=== PATIENT | male | born 1940 | race Caucasian/White ===

== ENCOUNTER 2016-12-29 15:42 | Emergency (ER) | payer MEDICARE, BC ==
--- NOTE | ~2016-12-29 | EKG ---
PATIENT: HERMELINDO VILLEGAS UNIT #: [id number] Ventricular Rate: 76 BPM Atrial Rate: 76 BPM P-R Interval: 164 ms QRS Duration: 130 ms Q-T Interval: 392 ms QTC Calculation(Bezet): 441 ms P [place]: -2 degrees Calculated R [place]: -66 degrees Calculated T [place]: 20 degrees Diagnosis Line: Normal sinus rhythm Diagnosis Line: Right bundle branch block with repolarization Diagnosis Line: abnormality Diagnosis Line: Left anterior fascicular block Diagnosis Line: Bifascicular block Diagnosis Line: Left ventricular hypertrophy with QRS widening Diagnosis Line: Abnormal ECG Diagnosis Line: No previous ECGs available Diagnosis Line: Confirmed by CRISTIN HARRIS MD ([id number]) on 12/31/2016 Diagnosis Line: 12:02:05 PM INTERPRETING MD: STEVEN VIGIL
--- NOTE | ~2016-12-29 | CR58 ---
[facility] A Service of [facility] RADIOLOGY TEXT RESULTS PATIENT: HERMELINDO VILLEGAS LOCATION: SED : 41 UNIT #: [id number] AGE: [address]: Felix Johnson MD SEX: M ORDER DR: [id number] [address] [address] [id number] E MR#: [id number] Acc #: [id number] NAME: HERMELINDO VILLEGAS : 1940 SEX: M STUDY DATE/TIME: 12/29/2016 15:40 UNIT: SED ROOM: STUDY DESCRIPTION: CR Cervical Spine 2 or 3 Views Attending Physician: Felix Johnson M.D. Ordering Physician: Felix Johnson M.D. Primary Care Physician: No Primary Care Physician MEDICAL IMAGING REPORT This report is preliminary unless electronic signature is present. EXAM Cervical spine series. DATE OF EXAM 12/29/2016 HISTORY Pain chest, shoulders, into neck. 4 days duration. No known injury. Chronic shoulder pain. REPORT AP lateral and open mouth odontoid views of the cervical spine are presented. COMPARISON 05/09/2010. FINDINGS 3-4 mm anterolisthesis C4 on C5 and approximately 2 mm anterolisthesis C5 on C6. Similar appearance on the study from 2009. The C4 on C5 anterolisthesis may be slightly greater than on prior study when it was about 3 mm. Vertebral body heights are normal. Severe narrowing of intervertebral disc spaces C2-C3, C3-C4, C4-C5 with moderate disc space narrowing elsewhere. Disc space narrowing has significantly progressed at C2-C3 and C4-C5 in the interval from prior study. Multilevel moderate to marked facet degenerative changes most pronounced C2-C3, C3-C4, C4-C5. Multilevel large anterior osteophytes. The C1-C2 relationship is poorly visualized secondary to bony overlap on the frontal images. It appears grossly normal. The odontoid process appears intact. The prevertebral soft tissues are remarkable. The visualized bony thorax is notable for prior median sternotomy. Degenerative changes in visualized thoracic spine. Multifocal dental fillings. Prominent soft tissue calcifications in the paraspinal regions on frontal views suggest prominent carotid STS. [facility] A Service of [facility] RADIOLOGY TEXT RESULTS PATIENT: HERMELINDO VILLEGAS LOCATION: SED : 41 UNIT #: [id number] AGE: [address]: Felix Johnson MD SEX: M ORDER DR: arterial calcifications. Correlate clinically and consider assessment with elective carotid ultrasound. The lung apices show no acute disease. Calcified granuloma in the left lung apex. If it would assist in patient management, spinal canal and neural foraminal contents could best be further evaluated with elective MRI if patient is candidate or with CT. Dictated by... Jl Beck M.D. THIS IS AN ELECTRONICALLY VERIFIED REPORT Jl Beck M.D. at 12/30/2016 10:49 PM Matt TD: 12/29/2016 21:24 JOB #: [id number] MEDICAL IMAGING REPORT Page 1 of 1
--- NOTE | ~2016-12-29 | CR229 ---
[facility] A Service of [facility] RADIOLOGY TEXT RESULTS PATIENT: HERMELINDO VILLEGAS LOCATION: SED : 41 UNIT #: [id number] AGE: [address]: Felix Johnson MD SEX: M ORDER DR: [id number] [place] [id number] E MR#: [id number] Acc #: [id number] NAME: HERMELINDO VILLEGAS : 1940 SEX: M STUDY DATE/TIME: 12/29/2016 15:40 UNIT: SED ROOM: STUDY DESCRIPTION: CR Shoulder Min 2 View Lt Attending Physician: Felix Johnson M.D. Ordering Physician: Felix Johnson M.D. Primary Care Physician: No Primary Care Physician MEDICAL IMAGING REPORT This report is preliminary unless electronic signature is present. EXAM Left shoulder, 3 views. COMPARISON August 03, 2011. INDICATIONS 76-year-old male with left shoulder pain after falling 5 days ago. FINDINGS Arterial calcifications are seen in the lower neck bilaterally. There is bulky degenerative facet disease at the lower cervical spine bilaterally. There is mild osteophyte formation at the left acromioclavicular joint where a chronic ossicle is also noted. Surgical clips are seen in the left upper arm. Changes of CABG are noted. Bones are anatomically aligned. No evidence of acute fracture. IMPRESSION 1. Advanced degenerative facet disease of the lower cervical spine bilaterally. 2. No acute fracture or dislocation of the left shoulder. Mild AC joint osteoarthritis. 3. Calcifications in the lower neck bilaterally, likely within the carotid arteries. Clinical correlation recommended. Dictated by... Sander Fish M.D. THIS IS AN ELECTRONICALLY VERIFIED REPORT Sander Fish M.D. at 01/01/2017 2:46 PM DORON/marian [facility] A Service of [facility] RADIOLOGY TEXT RESULTS PATIENT: HERMELINDO VILLEGAS LOCATION: SED : 41 UNIT #: [id number] AGE: [address]: Felix Johnson MD SEX: M ORDER DR: TD: 12/29/2016 20:24 JOB #: [id number] MEDICAL IMAGING REPORT Page 1 of 1
--- NOTE | ~2016-12-29 | CR230 ---
[facility] A Service of [facility] RADIOLOGY TEXT RESULTS PATIENT: HERMELINDO VILLEGAS LOCATION: SED : 41 UNIT #: [id number] AGE: [address]: Felix Johnson MD SEX: M ORDER DR: [id number] [place] [id number] E MR#: [id number] Acc #: [id number] NAME: HERMELINDO VILLEGAS : 1940 SEX: M STUDY DATE/TIME: 12/29/2016 15:40 UNIT: SED ROOM: STUDY DESCRIPTION: CR Shoulder Min 2 View Rt Attending Physician: Felix Johnson M.D. Ordering Physician: Felix Johnson M.D. Primary Care Physician: No Primary Care Physician MEDICAL IMAGING REPORT This report is preliminary unless electronic signature is present. EXAM Right shoulder, 3 views. COMPARISON 3 views of the left shoulder on the same date, and right shoulder radiographs dated August 05, 2005. INDICATIONS 76-year-old male with right shoulder pain after falling 5 days ago. FINDINGS Bulky degenerative facet disease is seen in the lower right cervical spine. There is also some uncinate hypertrophy. Surgical anchors are noted in the right humeral head, likely reflecting prior rotator cuff repair. There is mild osteophyte formation of the acromioclavicular joint. Diffuse arterial calcification in the upper arm. No evidence of dislocation. No acute fracture. Prior median sternotomy. Markers of CABG. IMPRESSION 1. No acute fracture or dislocation of the right shoulder. Surgical anchors in the right humeral head likely reflecting prior rotator cuff repair. 2. Mild AC joint osteoarthritis. 3. Diffuse arterial calcification in the upper right arm. Right side degenerative facet disease of the cervical spine. Dictated by... Sander Fish M.D. THIS IS AN ELECTRONICALLY VERIFIED REPORT [facility] A Service of [facility] RADIOLOGY TEXT RESULTS PATIENT: HERMELINDO VLILEGAS LOCATION: SED : 41 UNIT #: [id number] AGE: [address]: Felix Johnson MD SEX: M ORDER DR: Sandre Fish M.D. at 01/01/2017 3:02 PM DORON/marian TD: 12/29/2016 19:30 JOB #: [id number] MEDICAL IMAGING REPORT Page 1 of 1
--- NOTE | ~2016-12-29 | CR72 ---
[facility] A Service [facility] RADIOLOGY TEXT RESULTS PATIENT: HERMELINDO VILLEGAS LOCATION: SED : 41 UNIT #: [id number] AGE: [address]: Felix Johnson MD SEX: M ORDER DR: [id number] [place] [id number] E MR#: [id number] Acc #: [id number] NAME: HERMELINDO VILLEGAS : 1940 SEX: M STUDY DATE/TIME: 12/29/2016 15:40 UNIT: SED ROOM: STUDY DESCRIPTION: CR Chest Single View Portable Attending Physician: Felix Johnson M.D. Ordering Physician: Felix Johnson M.D. Primary Care Physician: No Primary Care Physician MEDICAL IMAGING REPORT This report is preliminary unless electronic signature is present. EXAM Portable AP view of the chest. COMPARISON December 23, 2016, and July 22, 2009. INDICATION 76-year-old male with chest pain after falling 5 days ago. FINDINGS Changes of CABG are again noted. Sternotomy wires appear intact. No evidence of pneumothorax, pleural effusion or acute airspace disease. No evidence of pulmonary contusion. Surgical anchor appears stable in the right humeral head as compared to December 23, 2016. Cardiomediastinal silhouette is likely within normal limits for portable technique. IMPRESSION No acute radiographic abnormality of the chest. Changes of CABG and prior right rotator cuff repair. Dictated by... Sander Fish M.D. THIS IS AN ELECTRONICALLY VERIFIED REPORT Sander Fish M.D. at 01/01/2017 3:02 PM DORON/marian TD: 12/29/2016 19:33 JOB #: [id number] MEDICAL IMAGING REPORT [facility] A Service [facility] RADIOLOGY TEXT RESULTS PATIENT: HERMELINDO VILLEGAS LOCATION: SED : 41 UNIT #: [id number] AGE: [address]: Felix Johnson MD SEX: M ORDER DR: Page 1 of 1
[2016-12-29 15:36] LABS: BASOPHIL% 0.3 % (0-2.5); EOSINOPHIL% 0.7 % (0.0-7.0); HEMATOCRIT 37.5 % (38.0-50.0); LYMPHOCYTE# 0.8 X10e3 (1.0-3.5); LYMPHOCYTE% 13.2 % (17.0-45.0); MEAN CELL VOLUME 88.8 FL (83-96); MEAN CORPUSCULAR HEMOGLOBIN 30.8 PG (28-34); MEAN CORPUSCULAR HGB CONC 34.7 g/dL (30-36); MEAN PLATELET VOLUME 8.1 FL (6.5-11.5); MONOCYTE# 0.5 X10e3 (0-1.0); MONOCYTE% 8.4 % (3.0-12.0); NEUTROPHIL# 4.6 X10e3 (1.5-7.1); NEUTROPHIL% 77.4 % (40-75); PLATELET COUNT 103 X10e3 (140-420); RED BLOOD COUNT 4.22 X10e (3.90-5.60); WHITE BLOOD COUNT 5.9 X10e3 (4.0-10.5)
[2016-12-29 15:37] LABS: DIFF IND NO
[~2016-12-29 15:42] MED LIST: AMBIEN10 MG PO; ASPIRIN EC81 M1 PO; LISINOPRIL10 MG PO; LOPRESSOR PO; METFORMIN HCL500 M2 PO; PANTOPRAZOLE SO40 MG PO; PRAVACHOL PO; ULTRAM PO
[2016-12-29 15:53] LABS: POC - CKMB 3.1 ng/mL (0.0-7.9); POC - TROPONIN <0.05 ng/mL (<=0.05)
[2016-12-29 16:00] LABS: BILIRUBIN, DIRECT 0.1 mg/dL (0.0-0.2); BILIRUBIN,INDIRECT 0.4 mg/dL (0.0-0.9); BILIRUBIN,TOTAL 0.5 mg/dL (0.2-2.0); BUN/CREATININE RATIO 13.63; CALCIUM SERUM 8.9 mg/dL (8.4-10.2); CREATININE SERUM 1.1 mg/dL (0.6-1.4); GLOM FILT RATE Estimated 65.3 mL/min (>60); POTASSIUM 3.9 mmol/L (3.5-5.1); PROTEIN TOTAL SERUM 7.4 g/dL (6.0-8.3)
[2016-12-29 16:16] LABS: INR 1.1; PROTHROMBIN TIME (PATIENT) 12.4 SECONDS (9.5-12.4)
[2016-12-29 16:23] LABS: PARTIAL THROMBOPLASTIN TIME 27.5 SECONDS (25.6-38.1)
== END 2016-12-29 17:36 | disposition home or self-care (01) ==
LOC: SED 15:42
PROVIDERS: Emergency Medicine
DX: M54.12 Radiculopathy, cervical region (principal); Z95.1 Presence of aortocoronary bypass graft
CPT/HCPCS: 36415; 71010; 72040; 73030; 80048; 80076; 82553; 84484; 85025; 85610; 85730; 93005; 96374; 99284; J2930

== ENCOUNTER 2017-02-21 23:57 | Inpatient (IN) | payer MEDICARE, BC ==
--- NOTE | ~2017-02-21 | CO ---
Unit #: [id number] #: [id number] Patient: HERMELINDO EID [id number] [facility] [address] [place], [place] [address] [id number] I MR#: [id number] NAME: HERMELINDO EID ROOM: 560 Age: 76 Sex: M Admission Date: 02/22/2017 : 1940 Attending Physician: Alvin Tomlin M.D. Consultation Date: 02/25/2017 CONSULTATION REPORT REASON FOR CONSULTATION Followup. DISCUSSION Mr. Hermelindo Eid is a 76-year-old white male, seen in room 560, bed 1 on 02/25/[address] [facility]. The patient is making progress. Decrease in anxiety and depression, but still confusion, problem with memory. The patient has a history of chronic alcohol abuse. The patient was able to maintain safe behavior. No aggression. Reports medication is helping him. The patient making progress and will be going to a rehab. The patient currently denied any suicidal or homicidal ideation. Denied any psychotic symptom. The patient's vital signs; temperature 97.7, pulse 78, blood pressure 142/82, and oxygen saturation 100%. MENTAL STATUS EXAMINATION General appearance; the patient dressed casually. Attention span and concentration, fair. Oriented in place and person. Mood and affect, labile. Speech, regular rate, but long pause. Thought process, coherent. Thought content, denied any thoughts of harming self or others or any hallucination. Recent and remote memory, fair to slightly impaired. Language, fair. Fund of knowledge, fair. Insight and judgment, fair to slightly impaired. 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 ASSESSMENT/PLAN 1. Supportive psychotherapy and psychoeducation provided to the patient. 2. Educated about benefits and side effects of medication and course and prognosis of illness. 3. Please feel free to call if any questions, telephone #[phone]. Dictated by... Pedro Coronel M.D. MARY/john TD: 02/26/2017 23:12 JOB #: [id number] Unit #: [id number] #: [id number] Patient: DEJAAYDEHERMELINDO CONSULTATION REPORT Page 1 of 1 X Pedro Coronel MD CONSULTATION REPORT
--- NOTE | ~2017-02-21 | CO ---
Unit #: [id number] #: [id number] Patient: HREMELINDO VILLEGAS [id number] [address] [address] [id number] I MR#: [id number] NAME: HERMELINDO VILLEGAS ROOM: 560 Age: 76 Sex: M Admission Date: 02/22/2017 : 1940 Attending Physician: Alvin Tomlin M.D. Primary Care Physician: Primary Care Physician No Consultation Date: 02/23/2017 CONSULTATION REPORT REASON FOR CONSULTATION Hyponatremia. HISTORY OF PRESENT ILLNESS The patient is a 76-year-old white male with known history of coronary artery disease, status post coronary artery bypass graft x2 in the year 1999 with a patent bypass grafts and cardiac catheterization in 2005 with 60%to 70% stenosis in RCA. The patient does not report any previous history of hyponatremia. The home medications include lisinopril. The patient is not noted to have any thiazides or SSRIs. No vomiting, no diarrhea. The patient was admitted with shortness of breath and dizziness. PAST MEDICAL HISTORY Significant for coronary artery bypass graft with PERKINS to LAD and SVG to obtuse marginal in year 1999; hypertension; hyperlipidemia; status post cardiac catheterization in 2005 with SVG to obtuse marginal patent and 60% to 70% RCA stenosis; type 2 diabetes; status post left below-knee amputation; and diabetic ulcer of the right foot. PAST SURGICAL HISTORY Significant for coronary artery bypass graft, left below-knee amputation, and right shoulder surgery. HOME MEDICATIONS Ultram, Ambien, metformin 500 mg twice daily, lisinopril 10 mg daily, metoprolol 25 mg twice daily, pravastatin 40 mg at bedtime, Protonix 40 mg daily, aspirin 81 mg daily, and Mobic 7.5 daily. ALLERGIES No known drug allergies. SOCIAL HISTORY Lives at home. Drinks 5 to 6 beers per day, status post left BKA with wheelchair use. FAMILY HISTORY Unremarkable. REVIEW OF SYSTEMS CVS: No chest pain. RESPIRATORY: No cough or expectoration. GI: No diarrhea, no vomiting. : No hematuria, no dysuria. Unit #: [id number] #: [id number] Patient: HERMELINDO VILLEGAS PHYSICAL EXAMINATION GENERAL: The patient is awake, alert, and oriented. VITAL SIGNS: Blood pressure is 156/84, temperature is 97.8, and saturation 97%. HEENT: The head is atraumatic. Extraocular movements are intact. Sclerae are anicteric. NECK: Supple. There is no elevation of the JVD. CHEST: Clear. Air entry is equal bilaterally. Breathing is vesicular in nature. HEART: S1 and S2 audible. There is no S3, no S4. ABDOMEN: Soft. There is no organomegaly. No guarding. No rigidity. No rebound tenderness. There is no edema. Left BKA. 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 Cerebellar system is intact. DIAGNOSTIC STUDIES LABORATORY RESULTS: Urine osmolality is 581. BNP is 111. Uric acid is 4.6. Sodium is 131, potassium 4.2, chloride 97, CO2 of 23, BUN is 20, creatinine is 0.8, glucose is 191, calcium is 9.2, and magnesium is 1.4. B12 is 434. Hemoglobin A1c 6.3. Troponin is less than 0.03. WBC is 11.4, H and H are 14.1 and 42.9 with a platelet count of 150. IMPRESSION 1. Hyponatremia likely increased antidiuretic hormone state with urine osmolality of 581 and complicated by Mobic and lisinopril. We will discontinue Mobic. Cardiology is to stop lisinopril. We will restrict fluids to 1200 mL per 24 hours and follow the levels. No neurologic sequelae at this time. If this becomes recurrent, the patient will need malignancy workup and also consider thyroid and cortisol levels. 2. Coronary artery disease. Cardiology following. 3. Hypertension. We will add hydralazine. We will follow the patient. Dictated by... Braulio Umanzor M.D. RA/john TD: 02/25/2017 06:44 JOB #: [id number] CONSULTATION REPORT Page 1 of 1 X Braulio Umanzor MD X CONSULTATION REPORT
--- NOTE | ~2017-02-21 | HP ---
Unit #: [id number] #: [id number] Patient: HERMELINDO VILLEGAS [id number] [address] [address] [id number] I MR#: [id number] NAME: HERMELINDO VILLEGAS ROOM: 560 Age: 76 Sex: M Admission Date: 02/22/2017 : 1940 Attending Physician: Alvin Tomlin M.D. Primary Care Physician: No Primary Care Physician HISTORY AND PHYSICAL REASON FOR ADMISSION Chest pain/pressure, increased dyspnea. HISTORY OF PRESENT ILLNESS Patient is a pleasant 76-year-old male, who presented secondary to chest pain, increased anxiety, increased dyspnea over the past several days. He lives at home. Apparently, he had a female girlfriend who was residing at home with him. However, his two out of three daughters felt as though she was not taking care of him appropriately and therefore they asked her to leave and over the past week the patient himself has been alone. Currently at the present time, his other daughter, Kristine, is present at bedtime. Apparently patient drinks anywhere from 8-12 beers on a daily basis. Before, he used to drink approximately 20 beers on a daily basis. He stated that he had increased level of thirst, became more disoriented than usual, and subsequently presented to the hospital for further evaluation. Initial hospital review here revealed a sodium of 127. Thus, the patient was admitted secondary to hyponatremia as well as chest pain and shortness of breath. In chart review, his past medical history reveals coronary artery disease, status post CABG x2 in 1999 with a prior cardiac catheterization in 2005. He does have a history of left wlism-ivn-qwga amputation, I believe secondary to peripheral vascular disease, diabetes, alcohol abuse, GERD, osteoarthritis, questionable dementia, anxiety. PAST SURGICAL HISTORY 1. CABG. 2. Knee surgery. 3. Left nomzo-bac-avxt amputation. HOME MEDICATIONS 1. Tramadol. 2. Ambien. 3. Metformin. 4. Lisinopril. 5. Lopressor. 6. Pravachol. 7. Protonix. 8. Aspirin. ALLERGIES Unit #: [id number] #: [id number] Patient: HERMELINDO VILLEGAS No known drug allergies. REVIEW OF SYSTEMS Please see HPI. A 12-point otherwise negative except for those positive and noted in the HPI. FAMILY HISTORY Reviewed and noncontributory and nonpertinent given patient's advanced age and associated co-morbid conditions. SOCIAL HISTORY Patient drinks alcohol, approximately 8-12 beers. Decreased from approximately 20 beers in the past on a daily basis. Prior history of tobacco abuse, none currently. Patient denies any illicit/substance abuse. PHYSICAL EXAMINATION VITAL SIGNS: Temperature 97.7, pulse 91, respiratory rate 19, blood pressure 222/97 on admission. GENERAL APPEARANCE: Patient is a 76-year-old male lying comfortably in no acute distress. HEENT: Head: Atraumatic, normocephalic. Ears: Tympanic membranes did not reveal any erythema or injection. NECK: Supple. CARDIOVASCULAR: S1, S2 without murmur. Midline incision/scar rigoberto present. RESPIRATORY: Poor air exchange noted bilaterally with prolonged expiration. No wheezes heard. GASTROINTESTINAL/ABDOMEN: Nontender. Nondistended. EXTREMITIES: Lower extremity exam: Right lower extremity yields no calf tenderness. There is minimal 1+ lower extremity edema. There is what appears to be some chronic ulcers on his right foot. His left lower extremity yields left sqjjq-qtf-nhub amputation with no acute infection and/or ulceration which is noted. EMERGENCY ROOM COURSE The patient received labetalol 20 mg IV x1. DIAGNOSTIC STUDIES LABORATORY: Initial laboratory studies yield a sodium of 120. Cardiac enzymes x2 were negative. TSH was normal. IMAGING: Chest x-ray performed and negative. INITIAL IMPRESSION 1. Hyponatremia. 2. Chest pain. 3. Dyspnea. 4. Anxiety. 5. Accelerated hypertension. 6. Questionable compliance with medications. 7. Hyperglycemia. 8. Diabetes with likely poor control. 9. Prior history of left twbrb-bpk-gbqw amputation. 10. Alcohol abuse. 11. Prior history of gastroesophageal reflux disease. PLAN 1. Admission telemetry floor. Unit #: [id number] #: [id number] Patient: HERMELINDO VILLEGAS 2. Cardiac consult. 3. Psych consult. 4. CIWA protocol will be initiated with p.o. Ativan for now. 5. Librium scheduled will be started as well. 6. Routine laboratory studies. 7. Symptom management. After a long discussion with the patient's daughter, it seems likely secondary to poor social support at home assisted living may be under consideration. Therefore, will have PT/OT evaluate patient. Rehab may also be a consideration considering the patient does reside home along approximately 90% of the time and for overall safety reasons, assisted living may be a better option for him. Renal services will also be consulted secondary to hyponatremia which likely seems secondary to increased fluid intake both alcohol, water, as well as, otherwise. Further hospital course to follow. At the present time, patient is full code. Dictated by Uli Null/leeann TD: 02/22/2017 12:24 JOB #: [id number] HISTORY AND PHYSICAL Page 1 of 1 X Alvin Tomlin MD X HISTORY AND PHYSICAL
--- NOTE | ~2017-02-21 | CO ---
Unit #: [id number] #: [id number] Patient: HERMELINDO VILLEGAS [id number] [facility]. [place], [place] [address] [id number] MR#: [id number] NAME: HERMELINDO VILLEGAS ROOM: 560 Age: 76 Sex: M Admission Date: 02/22/2017 : 1940 Attending Physician: Alvin Tomlin M.D. Consultation Date: 02/22/2017 CONSULTATION REPORT REASON FOR CONSULTATION Uncontrolled hypertension and hyponatremia. HISTORY OF PRESENT ILLNESS This is a 76-year-old white male, known to Dr. Rubin with a past medical history of coronary artery disease, status post coronary artery bypass grafting x2 vessels in 05/2000. The patient had a cardiac catheterization in 10/2005, which revealed [place] disease. The grafts were reportedly patent. However, there was 60% to 70% stenosis in the mid right coronary artery which was managed medically. The patient was last seen in the office in [address] Rubin. He had some chest pain reported at that time and was prescribed nitroglycerin. There was discussion about repeating cardiac catheterization, but according to the patient and his family, he has not had any recent testing over the last couple of years. Additional past medical history includes GERD and diabetes mellitus type 2. Approximately 5 years ago, the patient underwent a left below-knee amputation due to poorly controlled diabetes and nonhealing wounds. He has a history of some alcohol abuse with up to 5 to 6 beers per day. He is a nonsmoker. He presented to the emergency department with complaints of shortness of breath. His shortness of breath has been present for the last couple of days. There are no reports of fever or chills. The shortness of breath is with exertion as well as at night. He has not been sleeping very well and has been very anxious. He is on scheduled anxiety medicine and apparently has went through a one month prescription of his lorazepam within 2 weeks. He admits to occasional dizziness with standing, but no syncope. He has also had a chest pain which he states is almost daily. The pain is in his midsternal chest and has described as an aching pain. There is no radiation. There are no associating symptoms except for he has been short of breath recently. He admits to some swelling in his right lower extremity. He has difficulty with ambulation due to inability to wear prosthetic for his left leg. He also has ongoing pain in his shoulder and issues with pain in his right foot. He has had some diabetic ulcers on his right foot that has been managed as an outpatient and appears to be doing better. In the emergency department, his temperature was 97.7, pulse 91, respirations 19, blood pressure 222/97. Initial labs revealed sodium 120. He was given a dose of labetalol and admitted for hypertension and hyponatremia. Cardiology was consulted for further management. PAST MEDICAL HISTORY 1. Coronary artery disease, status post coronary artery bypass grafting Unit #: [id number] #: [id number] Patient: HERMELINDO VILLEGAS x2 with PERKINS to the LAD and saphenous vein graft to the obtuse marginal in 05/2000. 2. Cardiac catheterization in 10/2005 revealed mid LAD 100%. Proximal left circumflex 100%. Patent saphenous vein graft to the obtuse marginal. Mid right coronary artery 60% to 70%. Full report unavailable. 3. Hypertension. 4. Hyperlipidemia. 5. Diabetes mellitus, type 2. 6. GERD. 7. Left below-knee amputation. 8. Anxiety. 9. Diabetic ulcers on right foot. 10. Nonsmoker. 11. History of alcohol abuse. PAST SURGICAL HISTORY 1. Coronary artery bypass grafting. 2. Cardiac catheterization. 3. Knee surgery. 4. Left ifwii-jkv-hpbo amputation. 5. Right shoulder surgery. HOME MEDICATIONS Ultram 50 mg p.o. every 6 hours p.r.n., Ambien 10 mg p.o. at bedtime, metformin 500 mg p.o. b.i.d., lisinopril 10 mg p.o. daily, metoprolol tartrate 25 mg p.o. b.i.d., pravastatin 40 mg p.o. at bedtime, pantoprazole 40 mg p.o. daily, aspirin 81 mg p.o. daily, lorazepam 1 mg p.o. b.i.d., Mobic 7.5 mg p.o. daily, MAGnesium-Oxide 400 mg p.o. b.i.d. ALLERGIES No known drug allergies. SOCIAL HISTORY The patient lives in a private residence. He uses a wheelchair. He is unable to wear prosthetic on his left leg. He is a nonsmoker. He does have a history of alcohol abuse with reported 5 to 6 beers per day. There are no reports of illicit drug use. FAMILY HISTORY Noncontributory. REVIEW OF SYSTEMS A 10-point review of systems negative except for details noted above in HPI. PHYSICAL EXAMINATION VITAL SIGNS: Temperature 98.8, pulse 86, blood pressure 184/86. CONSTITUTIONAL: This is a 76-year-old white male, in no acute distress. SKIN: Warm and dry. NECK: Supple. No jugular vein distention. No hepatojugular reflux. Normal carotid upstrokes. No carotid bruits auscultated. HEART: S1 and S2. Regular rate and rhythm. No murmurs, rubs, or gallops. LUNGS: Bilateral breath sounds have air entry throughout all lung [place]. Respirations are even and nonlabored. No rales, rhonchi, or wheezes. ABDOMEN: Soft, nontender, and nondistended. Positive bowel sounds auscultated x4 quadrants. No ascites noted. EXTREMITIES: Right lower extremity has trace pretibial pitting edema. Unit #: [id number] #: [id number] Patient: HERMELINDO VILLEGAS Skin is dry on the bottom of the right heel. Capillary refill less than 3 seconds on the right lower extremity. DIAGNOSTIC STUDIES LABORATORY RESULTS: White blood cell count 12.3, hemoglobin 16.2, hematocrit 48.6, platelets 190. Sodium 120, potassium 4.2, chloride 84, CO2 of 25, BUN 21, creatinine 0.8, glucose 214. AST 31, ALT 29, alkaline phos 59. TSH pending. Alcohol level less than 4. Troponin 0.05. IMAGING STUDIES: Chest x-ray reveals no acute findings. Degenerative disease noted in both shoulders with postoperative changes in the right shoulder. Mild cardiomegaly with stable, status post coronary artery bypass grafting. Atherosclerotic disease in aorta. CARDIOVASCULAR STUDIES: EKG reveals sinus rhythm with a ventricular rate of 92 beats per minute. Left axis deviation. Right bundle-branch block. Poor R-wave progression. QTc 445 msec. IMPRESSION 1. Uncontrolled hypertension. 2. Hyponatremia. 3. Anxiety. 4. Chest pain, rule out ischemia. 5. Right bundle-branch block, age undetermined. 6. Coronary artery disease with history of coronary artery bypass grafting and x2 vessels in 05/2000. Repeat cardiac catheterization in 10/2005 revealed reportedly patent graft. Negative mid right coronary artery 60% to 70%. 7. Hyperlipidemia. 8. Diabetes mellitus, type 2. 9. History of left below-knee amputation. 10. Alcohol abuse. PLAN 1. The patient presented to the hospital with complaints of shortness of breath as well as chest pain. He was admitted for further observation. Cardiology was consulted. 2. The patient's antihypertensives will be restarted except for lisinopril. 3. 2D echocardiogram will be obtained to assess LV function and valves. 4. The patient's cardiac enzymes and EKG will be trended. 5. He does need an ischemic workup. We will hold off on stress test for the time being due to anxiety and claustrophobia. 6. The field case manager will be consulted for discharge planning and possible need for assisted living. Dictated by... Nasrin Kyle APRN TR/john TD: 02/23/2017 03:03 JOB #: [id number] Unit #: [id number] #: [id number] Patient: HERMELINDO VILLEGAS CONSULTATION REPORT Page 1 of 1 X X CONSULTATION REPORT
--- NOTE | ~2017-02-21 | CR72 ---
[facility] A Service of [facility] & [facility] RADIOLOGY TEXT RESULTS PATIENT: HERMELINDO VILLEGAS LOCATION: B 560-01 : 41 UNIT #: [id number] AGE: [address]: Alvin Tomlin MD SEX: M ORDER DR: [id number] [facility] [address] [facility]. [place], [place] [address] [id number] I MR#: [id number] #: [id number] NAME: HERMELINDO VILLEGAS : 1940 SEX: M STUDY DATE/TIME: 02/22/2017 01:21 UNIT: [facility] ROOM: [facility] STUDY DESCRIPTION: CR Chest Single View Portable Attending Physician: Alvin Tomlin M.D. Ordering Physician: Ronald Walker M.D. Primary Care Physician: Primary Care Physician No MEDICAL IMAGING REPORT This report is preliminary unless electronic signature is present EXAM Portable chest, 02/22 at 01:21 hours INDICATION Chest pain on the left side for 2-3 days. History of coronary artery disease. FINDINGS AP portable chest is compared with 12/29/2016. Mild cardiomegaly is stable status post CABG. Lungs are clear. No pneumothorax. There is atherosclerotic disease in the aorta. Degenerative disease noted in both shoulders with postoperative change in the right shoulder. IMPRESSION No active disease. Dictated by... Chano Henson Jr., M.D. THIS IS AN ELECTRONICALLY VERIFIED REPORT Chano Henson Jr., M.D. at 02/22/2017 9:14 PM FREDIS/jonnathan TD: 02/22/2017 10:17 JOB #: [id number] MEDICAL IMAGING REPORT Page 1 of 1 COPY
--- NOTE | ~2017-02-21 | CO ---
Unit #: [id number] #: [id number] Patient: HERMELINDO VILLEGAS [id number] [facility] [address] [facility]. [place], [place] [address] [id number] I MR#: [id number] NAME: HERMELINDO VILLEGAS ROOM: 560 Age: 76 Sex: M Admission Date: 02/22/2017 : 1940 Attending Physician: Alvin Tomlin M.D. Consultation Date: 02/22/2017 CONSULTATION REPORT REASON FOR CONSULTATION Depression, anxiety, problem with memory, and dementia. HISTORY OF PRESENT ILLNESS Mr. Kevin is a 76-year-old white male, seen in room 516, bed 1 on 02/22/2017 at [facility]. The patient was pleasant and cooperative, lying comfortably, dressed in hospital attire, seemed somewhat anxious, nervous, having problem with memory, reported having severe anxiety, trouble sleeping, feeling sad, depressed, and anxious. The patient reports that he was on Ativan that helped, but currently out of that medication and having lot of panic attack and anxiety. The patient's daughter, who was at the bedside also gave information. The patient also has a history of alcohol abuse. The patient reported lot of stress in the family. The patient also admitted drinking 8 to 12 beers on a daily basis prior to coming to the hospital. PAST PSYCHIATRIC HISTORY Remarkable for history of alcohol abuse. No history of other psychiatric illness known at this time. MEDICAL HISTORY The patient has a history of CABG, knee surgery, and left zbsub-xqw-fqyc amputation. MEDICATIONS Tramadol, Ambien, metformin, lisinopril, Lopressor, Pravachol, Protonix, and aspirin. ALLERGIES No known drug allergies. FAMILY HISTORY AND SOCIAL HISTORY The patient has a good support system from family. No history of abuse, but history of substance abuse, mainly alcohol as mentioned above. REVIEW OF SYSTEMS Complete review of system is unremarkable except as mentioned above. MENTAL STATUS EXAMINATION Vital signs; temperature 98.2, pulse 73, respirations 16, blood pressure 155/66, and oxygen saturation 97%. General appearance, the patient dressed casually in hospital attire, lying comfortably in bed, seemed somewhat anxious and nervous. Attention span and concentration, fair. Unit #: [id number] #: [id number] Patient: HERMELINDO VILLEGAS Speech, slow in volume and rate. Oriented in place and person. Mood and affect, sad, dysphoric, flat, and anxious. Thought process was coherent. Thought content, the patient denied any thoughts of harming self or others or any hallucination, but guarded. Recent and remote memory, fair to slightly impaired. Language, fair. Fund of knowledge, fair to slightly impaired. Insight and judgment, fair to slightly impaired. DIAGNOSES Psychiatric: Major depressive disorder, recurrent, severe, F33.2; anxiety disorder, not otherwise specified, F40.01; alcohol use disorder, severe, F10.20; rule out major neurocognitive disorder secondary to Alzheimer disease without behavioral disturbances, F02.80. Secondary diagnosis: Deferred. Medical diagnosis: Please refer to H and P. Stressors: Psychosocial stressor. ASSESSMENT/PLAN 1. Supportive psychotherapy and psychoeducation provided to the patient. 2. Educated about benefits and side effects of medication and course and prognosis of illness. 3. Advised social work faculty member consult to evaluate the patient's home condition for alternative placement. Recommending to add Remeron 15 mg at bedtime for sleep, depression, and to improve appetite. Also, advised at this time, to continue with the Librium 25 mg q.8 hours p.r.n. We will continue to follow. If needed, consider further adjustment of medication. Please feel free to call if any questions, telephone #[phone]. Dictated by... Uli Lloyd/john TD: 02/23/2017 15:36 JOB #: [id number] CONSULTATION REPORT Page 1 of 1 X Pedro Coronel MD X CONSULTATION REPORT
--- NOTE | ~2017-02-21 | ST ---
Unit #: [id number] #: [id number] Patient: HERMELINDO VILLEGAS [id number] [facility]. [address] [place], [place] [address] [id number] I MR#: [id number] NAME: HERMELINDO VILLEGAS : 1940 SEX: M STUDY DATE/TIME: 02/24/2017 UNIT: [id number] ROOM: [facility] STUDY DESCRIPTION: Attending Physician: Alvin Tomlin M.D. Primary Care Physician: No Primary Care Physician CARDIOLOGY REPORT EXAM Lexiscan Cardiolite stress test. FINDINGS Baseline EKG: Normal sinus rhythm with ventricular rate 67 beats per minute, right bundle branch block, poor R-wave progression, left atrial abnormality, Q waves in V1, V2. PROCEDURE Lexiscan is a 4-minute test with Lexiscan being injected within the first minute followed by Cardiolite. EKG during the test was equivocal to baseline. No acute ischemic changes. Patient had no complaints of chest pain, palpitations, or dizziness. Had increased shortness of breath and fatigueness which resolved in recovery phase. Maximum heart rate response was 91 beats per minute with a maximum blood pressure response of 149/81 mmHg. Patient had no complaints of chest pain, palpitations, or dizziness. Had increased shortness of breath and fatigueness which resolved in recovery phase. EKG during the test was equivocal to baseline. No acute ischemic changes. Cardiolite was injected after Lexiscan within the first minute of the test. Radionuclide tests pending. Please correlate with nuclear images. Dictated by... Elvis ColonPShanaeRShanaeNShanae for Uli Saeed TD: 02/24/2017 10:14 JOB #: [id number] CARDIOLOGY REPORT Page 1 of 1 X Dara Liu APRN CARDIOLOGY REPORT
--- NOTE | ~2017-02-21 | EKG ---
PATIENT: HERMELINDO VILLEGAS UNIT #: [id number] Ventricular Rate: 92 BPM Atrial Rate: 92 BPM P-R Interval: 192 ms QRS Duration: 126 ms Q-T Interval: 360 ms QTC Calculation(Bezet): 445 ms P [place]: 11 degrees Calculated R [place]: -55 degrees Calculated T [place]: -5 degrees Diagnosis Line: Normal sinus rhythm Diagnosis Line: Right bundle branch block Diagnosis Line: Left anterior fascicular block Diagnosis Line: Bifascicular block Diagnosis Line: Consider prior inferior infarct Diagnosis Line: Abnormal ECG Diagnosis Line: When compared with ECG of 29-DEC-2016 15:26, Diagnosis Line: ST elevation now present in Inferior leads Diagnosis Line: T wave amplitude has increased in Lateral leads Diagnosis Line: Confirmed by PETROS PERSAUD MD ([id number]) on Diagnosis Line: 02/22/2017 10:08:33 PM INTERPRETING MD: RALF
--- NOTE | ~2017-02-21 | DS ---
Unit #: [id number] #: [id number] Patient: HERMELINDO VILLEGAS [id number] [place], [place] [address] [id number] I MR#: [id number] NAME: HERMELINDO VILLEGAS ROOM: 560 Age: 76 Sex: M Admission Date: 02/22/2017 : 1940 Discharge Date: 02/25/2017 Attending Physician: Alvin Tomlin M.D. Primary Care Physician: No Primary Care Physician DISCHARGE SUMMARY REASON FOR ADMISSION Chest pain. HISTORY OF PRESENT ILLNESS/HOSPITAL COURSE The patient is a very pleasant 76-year-old male who presented secondary to chest pain, increased anxiety, increased dyspnea over the past several days prior to admission. He was subsequently admitted. He does have a prior history of chronic alcohol abuse. He states he drinks anywhere from 8-12 beers on a daily basis. He tries to drink more but unfortunately, he states that he is unable to do so. He states in the past he drank approximately 20-25 cans of beer on a daily basis. He presented secondary to increased chest pain and/or discomfort. Daughter stated that recently he has had increased anxiety while at home. She felt as though initially it was anxiety; however, she became concerned for possible underlying coronary etiology and this brought patient to the hospital. Consultation was placed to Dr. Pichardo and associates for evaluation. Ultimately, patient underwent Lexiscan Cardiolite stress test which did not show any acute evidence of ischemia. Acute coronary syndrome was ruled out with negative cardiac enzymes. Patient also underwent CT chest without contrast on February 22, 2017, which did not show any acute pulmonary process. Extensive coronary artery calcifications were noted. Routine laboratory studies were ascertained. Appropriate electrolytes were repleted. Patient did have decreased sodium initially and consultation had been placed to nephrology services. Dr. Louis and associates saw and evaluated the patient. Today at time of discharge, the patient's sodium currently stands at 130. It should be noted that patient's hemoglobin A1c is also 6.3%. At time of discharge, patient's hemoglobin is 14.4, representing likely his baseline. He does have a prior history of a left zkhxw-aah-rdcd amputation secondary to peripheral vascular disease. PT and OT services saw and evaluated the patient and did recommend consideration should be given to patient to be transitioned to our rehab facility so that he can better learn how to Unit #: [id number] #: [id number] Patient: HERMELINDO VILLEGAS transfer himself from both bed to chair as well as to possible use prosthesis moving forward. FINAL DIAGNOSES 1. Chest pain, acute coronary syndrome ruled out. 2. Coronary artery disease with prior history of coronary artery bypass grafting in 1999. 3. Left gllsy-ohu-ndso amputation secondary to peripheral vascular disease in past. 4. Diabetes, excellent control. 5. Alcohol abuse, ongoing. 6. Gastroesophageal reflux disease. 7. Osteoarthritis. 8. Anxiety. 9. Possible dementia. FINAL DISCHARGE MEDICATIONS 1. Mag-Ox 400 mg p.o. b.i.d. 2. Remeron 15 mg p.o. nightly. 3. Metformin 500 mg p.o. b.i.d. 4. Pravachol 40 mg p.o. nightly. 5. Lasix 20 mg p.o. b.i.d. 6. Lopressor 25 mg p.o. b.i.d. 7. Lisinopril 10 mg p.o. daily. 8. Aspirin 81 mg p.o. daily. 9. Protonix 40 mg p.o. daily. 10. Klor-Con 20 mEq p.o. daily. 11. Daily multivitamin. DISCHARGE CONDITION Stable. DISCHARGE DISPOSITION To rehab for ongoing care. PROGNOSIS Long-term prognosis of this patient is guarded at best secondary to his ongoing alcohol abuse. Dictated by... Uli Null/leeann TD: 02/25/2017 11:42 JOB #: [id number] Unit #: [id number] #: [id number] Patient: HERMELINDO VILLEGAS DISCHARGE SUMMARY Page 1 of 1 X Alvin Tomlin MD X DISCHARGE SUMMARY
--- NOTE | ~2017-02-21 | CO ---
Unit #: [id number] #: [id number] Patient: HERMELINDO VILLEGAS [id number] [facility] [address] [place], [place] [address] [id number] I MR#: [id number] NAME: HERMELINDO VILLEGAS ROOM: 560 Age: 76 Sex: M Admission Date: 02/22/2017 : 1940 Attending Physician: Alvin Tomlin M.D. Primary Care Physician: Primary Care Physician No Consultation Date: 02/24/2017 CONSULTATION REPORT REASON FOR CONSULTATION Followup. DISCUSSION Mr. Kevin is a 76-year-old white male, seen in room 560 bed 1 on 02/24/2017 at [facility]. The patient was compliant, cooperative, seemed somewhat anxious, nervous, guarded. The patient has problem with the anxiety and problem with memory. The patient has a power of mold forms builder, his daughter. The patient wants to go home, but one sister wants him to go to a rehab, the other one wants to go home. The patient currently denied any thoughts of harming self or others. Denied any psychotic symptom, but still somewhat anxious, guarded, flat affect, sad and dysphoric mood. The patient still having problem with memory, making progress, alert and oriented in place and person. REVIEW OF SYSTEMS Complete review of systems unremarkable. MENTAL STATUS EXAMINATION Vital signs; temperature 98.6, pulse 105, respirations 18, blood pressure 103/57, oxygen saturations 95%. General appearance; the patient dressed in hospital attire, sitting comfortably in bed. Attention span and concentration, fair. Speech, slow in rate and rhythm. Oriented in place and person. Mood and affect, sad, dysphoric, anxious. Thought process, coherent. Thought content, the patient denied any thoughts of harming self or others or any hallucination. Recent and remote memory, fair to slightly impaired. Language, fair. Fund of knowledge, fair. Insight and judgment, fair to slightly impaired. 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 ASSESSMENT AND PLAN 1. Supportive psychotherapy and psychoeducation provided to the patient. 2. Educated about benefits and side effects of medication and course and prognosis of illness. 3. Advised to continue with current medication and make further adjustment of medication if needed. 4. Based on the current assessment, the patient does have problem with the memory deficit, diagnosis of dementia and after reviewing all the information, we are recommending the patient is unable to make informed medical decision and the patient should have a power of mold forms builder. Unit #: [id number] #: [id number] Patient: HERMELINDO VILLEGAS Dictated by... Uli Lloyd/john TD: 02/25/2017 06:44 JOB #: [id number] CONSULTATION REPORT Page 1 of 1 X Pedro Coronel MD X CONSULTATION REPORT
--- NOTE | ~2017-02-21 | CO ---
Unit #: [id number] #: [id number] Patient: HERMELINDO VILLEGAS [id number] [facility] [address] [address] [facility]. [place], [place] [address] [id number] I MR#: [id number] NAME: HERMELINDO VILLEGAS ROOM: 560 Age: 76 Sex: M Admission Date: 02/22/2017 : 1940 Attending Physician: Alvin Tomlin M.D. Consultation Date: 02/23/2017 CONSULTATION REPORT REASON FOR CONSULTATION Followup. DISCUSSION Mr. Kevin is a 76-year-old male, seen in room 560, bed 1 on 02/23/[address] [facility]. The patient was alert, awake, able to answer questions appropriately. The patient reports that he is feeling much better. The patient was able to answer questions coherently. The patient is making progress. Vital signs were stable; temperature 98.8, pulse 72, respirations 16, blood pressure 120/69, and oxygen saturation 100%. The patient denied any thoughts of harming self or others. REVIEW OF SYSTEMS Complete review of systems unremarkable. MENTAL STATUS EXAMINATION General appearance, the patient dressed casually. Attention span and concentration, fair. Speech, regular rate and coherent. Oriented in time, place, and person. Mood and affect were brighter. Thought process, coherent. Thought content, the patient denied any thoughts of harming self or others or any psychotic symptom. Recent and remote memory, fair to slightly impaired. Language, fair. Fund of knowledge, fair to slightly impaired. Insight and judgment, fair to slightly impaired. 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 ASSESSMENT/PLAN 1. Supportive psychotherapy and psychoeducation provided to the patient. 2. Educated about benefits and side effects of medication and course and prognosis of illness. 3. Advised to continue with current medication. If needed, consider further adjustment of medication. Please feel free to call if any questions, telephone #[phone]. Dictated by... Pedro Coronel M.D. MARY/john TD: 02/23/2017 23:33 Unit #: [id number] #: [id number] Patient: HERMELINDO VILLEGAS JOB #: [id number] CONSULTATION REPORT Page 1 of 1 X Pedro Coronel MD CONSULTATION REPORT
--- NOTE | ~2017-02-21 | CT57 ---
[facility] Service of [facility] RADIOLOGY TEXT RESULTS PATIENT: HERMELINDO VILLEGAS LOCATION: [facility] [address] : [birth year] UNIT #: [id number] AGE: [address]: Alvin Tomlin MD SEX: M ORDER DR: [id number] [facility] [address]. [place], [place] [address] [id number] I MR#: [id number] Acc #: [id number] NAME: HERMELINDO VILLEGAS : 1940 SEX: M STUDY DATE/TIME: 02/22/2017 16:22 UNIT: [facility] ROOM: [facility] STUDY DESCRIPTION: CT Chest Wo Cont Attending Physician: Alvin Tomlin M.D. Ordering Physician: Alvin Tomlin M.D. Primary Care Physician: Primary Care Physician No MEDICAL IMAGING REPORT This report is preliminary unless electronic signature is present EXAM CT chest without contrast HISTORY 76-year-old male with acute respiratory failure, also complains of chest pain. TECHNIQUE Axial images performed through the chest without contrast. Multiplanar reconstructed images reviewed at a workstation. This CT exam was performed with one or more of the following radiation dose reduction techniques: automatic exposure control, adjustment of mA and/or kV according to patient size, and iterative reconstruction. FINDINGS Pulmonary parenchyma is normal. Mild cardiomegaly. Extensive coronary artery calcifications noted. Mild aortic atherosclerotic changes. 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 Upper abdomen unremarkable. The patient is postop median sternotomy. Bilateral gynecomastia. IMPRESSION 1. No acute intrathoracic abnormality identified. 2. Extensive coronary artery calcifications and mild cardiomegaly. Dictated by... Gracie Malik M.D. THIS IS AN ELECTRONICALLY VERIFIED REPORT Gracie Malik M.D. at 02/23/2017 3:08 PM TAYLER/jonnathan [facility] A Service of [facility] RADIOLOGY TEXT RESULTS PATIENT: HERMELINDO VILLEGAS LOCATION: [facility] 560 : 41 UNIT #: [id number] AGE: [address]: Alvin Tomlin MD SEX: M ORDER DR: TD: 02/23/2017 08:08 JOB #: [id number] MEDICAL IMAGING REPORT Page 1 of 1 COPY
--- NOTE | ~2017-02-21 | TH ---
Unit #: [id number] #: [id number] Patient: HERMELINDO VILLEGAS [id number] [address] [address] [id number] I MR#: [id number] NAME: HERMELINDO VILLEGAS : 1940 SEX: M STUDY DATE/TIME: 02/24/2017 UNIT: [id number] ROOM: [facility] STUDY DESCRIPTION: Attending Physician: Alvin Tomlin M.D. Primary Care Physician: No Primary Care Physician CARDIOLOGY REPORT EXAM Lexiscan Cardiolite stress test, nuclear portion. PROCEDURE Using technetium 99m labeled Cardiolite, rest and stress SPECT images were obtained. Multiple SPECT images were obtained in various views including horizontal and vertical long axis and short axis views of the left ventricle. Images were obtained by gated SPECT method. The patient was administered 11.71 mCi of Cardiolite at rest. Patient was administered 33.9 mCi of Cardiolite after Lexiscan infusion was completed. On the stress images, there is normal perfusion noted. The rest images showed normal perfusion. Comparing rest and stress images, there is no stress-induced ischemia noted. The left ventricular ejection fraction is calculated to be 50%. There is septal hypokinesis seen. CONCLUSION 1. No stress-induced ischemia noted. 2. The left ventricular ejection fraction is calculated to be 50%. 3. There is mild septal hypokinesis noted. 4. Normal Lexiscan Cardiolite stress test. Dictated by... Uli Saeed TD: 02/24/2017 17:14 JOB #: [id number] CARDIOLOGY REPORT Page 1 of 1 X Karey Pichardo MD <ELECTRONICALLY SIGNED> 03/27/17 1429 CARDIOLOGY REPORT
--- NOTE | ~2017-02-21 | EKG ---
PATIENT: HERMELINDO VILLEGAS UNIT #: [id number] Ventricular Rate: 68 BPM Atrial Rate: 68 BPM P-R Interval: 174 ms QRS Duration: 130 ms Q-T Interval: 424 ms QTC Calculation(Bezet): 450 ms P Stevenson: 6 degrees Calculated R Stevenson: -65 degrees Calculated T Stevenson: -35 degrees Diagnosis Line: Normal sinus rhythm Diagnosis Line: Right bundle branch block Diagnosis Line: Left anterior fascicular block Diagnosis Line: Bifascicular block Diagnosis Line: Abnormal ECG Diagnosis Line: When compared with ECG of 22-FEB-2017 00:11, Diagnosis Line: ST now depressed in Inferior leads Diagnosis Line: ST no longer depressed in Anterior leads Diagnosis Line: T wave inversion now evident in Lateral leads Diagnosis Line: Confirmed by PETROS PERSAUD MD ([id number]) on Diagnosis Line: 02/23/2017 10:41:34 PM INTERPRETING MD: RALF
[2017-02-22 01:44] LABS: HEMATOCRIT 48.6 % (38.0-50.0); HEMOGLOBIN 16.2 gm/dL (13.0-16.0); LYMPHOCYTE# 0.8 X10e3 (1.0-3.5); LYMPHOCYTE% 6.9 % (17.0-45.0); MEAN CELL VOLUME 91.4 FL (83-96); MEAN CORPUSCULAR HEMOGLOBIN 30.6 PG (28-34); MEAN CORPUSCULAR HGB CONC 33.5 g/dL (30-36); MEAN PLATELET VOLUME 8.4 FL (6.5-11.5); MONOCYTE# 0.6 X10e3 (0-1.0); MONOCYTE% 5.1 % (3.0-12.0); NEUTROPHIL# 10.8 X10e3 (1.5-7.1); PLATELET COUNT 190 X10e3 (140-420); RED BLOOD COUNT 5.31 X10e (3.90-5.60); WHITE BLOOD COUNT 12.3 X10e3 (4.0-10.5)
[2017-02-22 01:45] LABS: DIFF IND NO
[2017-02-22 02:44] LABS: ALBUMIN SERUM 4.8 g/dL (3.5-5.0); ALKALINE PHOSPHATASE 59 U/L (32-92); ALT (SGPT) 29 U/L (10-40); AST (SGOT) 31 U/L (10-42); BILIRUBIN, DIRECT 0.1 mg/dL (0.0-0.2); BILIRUBIN,INDIRECT 0.4 mg/dL (0.0-0.9); BILIRUBIN,TOTAL 0.5 mg/dL (0.2-2.0); BLOOD UREA NITROGEN 21 mg/dL (9-23); BUN/CREATININE RATIO 26.25; CALCIUM SERUM 9.9 mg/dL (8.4-10.2); CARBON DIOXIDE 25 mmol/L (22-31); CHLORIDE 84 mmol/L (100-111); CREATININE SERUM 0.8 mg/dL (0.6-1.4); GLOM FILT RATE Estimated 87.4 mL/min (>60); GLUCOSE FASTING 214 mg/dL (70-110); POTASSIUM 4.2 mmol/L (3.5-5.1); PROTEIN TOTAL SERUM 8.4 g/dL (6.0-8.3)
[2017-02-22 02:45] LABS: ALCOHOL BLOOD <5 mg/dL (0); SODIUM 120 mmol/L (135-145)
[2017-02-22 03:05] LABS: POC - CKMB 8.4 ng/mL (0.0-7.9); POC - TROPONIN <0.05 ng/mL (<=0.05)
[2017-02-22] MEDS ORDERED: ATIVAN PO (04:23)
[2017-02-22] MEDS ORDERED: MOBIC PO (04:23)
[2017-02-22] MEDS ORDERED: MAG-OX 400400 M1 PO (09:07)
[2017-02-22 10:36] LABS: %MB 8.1 % (0.0-4.0); MB 9.4 ng/ml
[2017-02-22 12:23] LABS: CHOLESTEROL 171 mg/dL (0-200); HDL CHOLESTEROL 80 mg/dL (29-75); LDL CHOLESTEROL 77 mg/dL (-130); LDL/HDL RATIO 1 RATIO (0-4); TRIGLYCERIDES 68 mg/dL (10-160)
[2017-02-22 16:48] LABS: %MB 7.5 % (0.0-4.0); MB 7.6 ng/ml
[2017-02-23 08:34] LABS: HEMATOCRIT 42.9 % (38.0-50.0); MEAN CELL VOLUME 92.1 FL (83-96); MEAN CORPUSCULAR HEMOGLOBIN 30.2 PG (28-34); MEAN CORPUSCULAR HGB CONC 32.7 g/dL (30-36); MEAN PLATELET VOLUME 7.9 FL (6.5-11.5); RED BLOOD COUNT 4.66 X10e (3.90-5.60); RED CELL DISTRIBUTION WIDTH 13.9 % (11.0-15.5); WHITE BLOOD COUNT 11.4 X10e3 (4.0-10.5)
[2017-02-23 08:37] LABS: HEMOGLOBIN 14.1 gm/dL (13.0-16.0)
[2017-02-23 08:45] LABS: INR 1.1; PROTHROMBIN TIME (PATIENT) 11.8 SECONDS (10.0-11.7)
[2017-02-23 10:08] LABS: CALCIUM SERUM 9.2 mg/dL (8.4-10.2); CREATININE SERUM 0.8 mg/dL (0.6-1.4); GLOM FILT RATE Estimated 87.4 mL/min (>60); MAGNESIUM 1.4 mg/dL (1.6-3.0); POTASSIUM 4.2 mmol/L (3.5-5.1)
[2017-02-24 07:42] LABS: BASOPHIL% 0.2 % (0-2.5); EOSINOPHIL% 0.5 % (0.0-7.0); HEMATOCRIT 43.6 % (38.0-50.0); HEMOGLOBIN 14.4 gm/dL (13.0-16.0); LYMPHOCYTE# 0.9 X10e3 (1.0-3.5); MEAN CELL VOLUME 92.4 FL (83-96); MEAN CORPUSCULAR HEMOGLOBIN 30.5 PG (28-34); MEAN PLATELET VOLUME 7.7 FL (6.5-11.5); MONOCYTE# 0.8 X10e3 (0-1.0); MONOCYTE% 8.7 % (3.0-12.0); NEUTROPHIL# 7.1 X10e3 (1.5-7.1); NEUTROPHIL% 80.6 % (40-75); PLATELET COUNT 118 X10e3 (140-420); RED BLOOD COUNT 4.71 X10e (3.90-5.60); RED CELL DISTRIBUTION WIDTH 14.2 % (11.0-15.5); WHITE BLOOD COUNT 8.8 X10e3 (4.0-10.5)
[2017-02-24 07:43] LABS: DIFF IND NO
[2017-02-24 08:23] LABS: BUN/CREATININE RATIO 28.75; CREATININE SERUM 0.8 mg/dL (0.6-1.4); GLOM FILT RATE Estimated 87.4 mL/min (>60); MAGNESIUM 1.6 mg/dL (1.6-3.0); POTASSIUM 4.2 mmol/L (3.5-5.1)
[2017-02-25 07:44] LABS: BUN/CREATININE RATIO 24.16; CALCIUM SERUM 9.2 mg/dL (8.4-10.2); CREATININE SERUM 1.2 mg/dL (0.6-1.4); GLOM FILT RATE Estimated 58.8 mL/min (>60); POTASSIUM 4.1 mmol/L (3.5-5.1)
== END 2017-02-25 14:23 | DRG 641 ==
LOC: CED 23:57 → CEDOF 02-22 04:45 → CED 02-22 04:45 → CEDOF 02-22 05:08 → C5B 02-22 06:30 → CEDOF 02-22 06:30 → C5B 02-22 07:17 → CEDOF 02-22 12:05 → C5B 02-22 12:05 → CED 02-22 12:05 → C5B 02-22 12:05
PROVIDERS: Emergency Medicine; Family Medicine; Internal Medicine; Internal Medicine Nephrology; Nurse Practitioner Family
PROC: B24BYZZ Ultrasonography of Heart with Aorta using Other Contrast (ICD-10-PCS; principal; 2017-02-22)
DX: E87.1 Hypo-osmolality and hyponatremia (principal); E11.621 Type 2 diabetes mellitus with foot ulcer; R06.00 Dyspnea, unspecified; F33.2 Major depressive disorder, recurrent severe without psychotic features; I08.1 Rheumatic disorders of both mitral and tricuspid valves; E83.42 Hypomagnesemia; I11.0 Hypertensive heart disease with heart failure; I50.22 Chronic systolic (congestive) heart failure; I16.1 Hypertensive emergency; R07.89 Other chest pain; F41.9 Anxiety disorder, unspecified; Z89.512 Acquired absence of left leg below knee; Z79.82 Long term (current) use of aspirin; E11.65 Type 2 diabetes mellitus with hyperglycemia; K21.9 Gastro-esophageal reflux disease without esophagitis; I25.10 Atherosclerotic heart disease of native coronary artery without angina pectoris; Z95.1 Presence of aortocoronary bypass graft; L97.519 Non-pressure chronic ulcer of other part of right foot with unspecified severity; I45.10 Unspecified right bundle-branch block; F02.80 Dementia in other diseases classified elsewhere, unspecified severity, without behavioral disturbance, psychotic disturbance, mood disturbance, and anxiety; F10.20 Alcohol dependence, uncomplicated; M62.3 Immobility syndrome (paraplegic); Y90.0 Blood alcohol level of less than 20 mg/100 ml
CPT/HCPCS: 36415; 71010; 71250; 78452; 80048; 80061; 80076; 82140; 82550; 82553; 82607; 82947; 83036; 83735; 83880; 83935; 84443; 84484; 84550; 85025; 85027; 85610; 93005; 93017; 93306; 96374; 97161; 97166; 97530; 97535; 99285; A9500; G0480; G8978-GP; G8979-GP; G8987-GO; G8988-GO; J0360; J1815; J2060; J2785; J3411; J3475